=== PATIENT | female | born 1945 | race Native Hawaiian/Other Pacific Islander ===

== ENCOUNTER 2017-05-12 18:41 | Emergency (ER) | payer OTHER ==
[~2017-05-12] VITALS: Ht 157.5 cm; Wt 98.9 kg
[~2017-05-12 18:41] MED LIST: ASPIRIN325 PO; BACTRIM DS TAB1 EACH PO; CLEOCIN HCL300 MG PO; FISHOIL PO; GLUCOPHAGE500 MG PO; HYDROCHLOROTHIA25 M1 PO; MULTI-SYMPTOM1 EAC3 PO; NATURAL VITA100 UNIT PO; NORVASC10 MG PO; TOPROL XL25 MG PO; VITAMIN C100 M1 PO; ZESTRIL5 MG PO
[2017-05-12] MEDS ORDERED: FEMARA2.5 MG (19:17)
[2017-05-12] MEDS ORDERED: VALSARTAN/HCTZ (19:17)
[2017-05-12] MEDS ORDERED: LANOXIN 0.120.125 M1 (19:18)
[2017-05-12] MEDS ORDERED: XARELTO20 MG (19:18)
[2017-05-12] MEDS ORDERED: JANUVIA100 MG (19:19)
[2017-05-12] MEDS ORDERED: ATORVASTATIN CA40 MG (19:19)
[2017-05-12] MEDS ORDERED: LASIX 20 MG TAB20 MG (19:19)
[2017-05-12] MEDS ORDERED: AMLODIPINE BESY10 MG (19:19)
[2017-05-12] MEDS ORDERED: GLIPIZIDE5 GM (19:20)
[2017-05-12] MEDS ORDERED: ACETAMINOPHEN-1 EAC1 PO (21:41)
[2017-05-12 22:09] VITALS: BP 127/64
== END 2017-05-12 22:11 | disposition home or self-care (01) ==
LOC: M.ERS 18:41
DX: S63.502A Unspecified sprain of left wrist, initial encounter (principal); I10 Essential (primary) hypertension; Z86.73 Personal history of transient ischemic attack (TIA), and cerebral infarction without residual deficits; Z98.890 Other specified postprocedural states; W01.0XXA Fall on same level from slipping, tripping and stumbling without subsequent striking against object, initial encounter; Y93.89 Activity, other specified; Y92.89 Other specified places as the place of occurrence of the external cause; Y99.8 Other external cause status